=== PATIENT | female | born 1990 | race Caucasian/White ===

== ENCOUNTER 2017-01-23 11:25 | Emergency (ER) | payer SELFPAY ==
[~2017-01-23] VITALS: Ht 172.7 cm; Wt 113.4 kg
[~2017-01-23 11:25] MED LIST: ALPR1TAB2 PO; ASPI1TAB21 PO; FLUO20CA16 PO; HYDR-2758 PO; HYDR-971 PO; IBUPROFEN PO
[2017-01-23 11:34] VITALS: BP 160/106
--- NOTE | 2017-01-23 11:51 | PHYS DOC ---
Past Medical History Past Medical History: Bipolar, Other Additional Past Medical Histor: obesity Past Surgical History: Cholecystectomy, Tonsillectomy Alcohol Use: Occasionally Drug Use: None Adult General Chief Complaint Chief Complaint: ANKLE PROBLEM HPI HPI Patient is a 26 year old female who presents with left ankle pain for 1 week after rolling it while walking down stairs carrying something. Denies other injuries. Continues to have pain laterally and posteriorly. Taking Tylenol with minimal relief, using a velcro wrap, unable to use NSAIDs due to h/o ulcer. She has "a bad sprain" one year ago on same ankle. Didn't complete recommended PT. No PCP Review of Systems Review of Systems Constitutional: Denies fever or chills [] Eyes: Denies change in visual acuity, redness, or eye pain [] HENT: Denies nasal congestion or sore throat [] Respiratory: Denies cough or shortness of breath [] Cardiovascular: denies chest pain GI: Denies abdominal pain, nausea, vomiting, bloody stools or diarrhea [] : Denies dysuria or hematuria [] Musculoskeletal: Denies back pain Integument: Denies rash or skin lesions [] Neurologic: Denies headache, focal weakness or sensory changes [] Allergies Allergies Allergies Coded Allergies Type Severity Reaction Last Updated Verified Penicillins Adverse Reaction Intermediate Nausea 12/10/14 Yes Physical Exam Physical Exam Constitutional: Well developed, well nourished, no acute distress, non-toxic appearance. HENT: Normocephalic, atraumatic Eyes: conjunctiva normal, no discharge. Neck:supple Cardiovascular:Heart rate regular with regular rhythm Lungs & Thorax: No respiratory distress Skin: Warm, dry Extremities: left ankle with ttp of lateral mal and posterior ankle without appreciable edema/erythema or increased warmth. wiggles toes, no pain in the foot, no deformity, normal sensory Neurologic: Alert and oriented X 3, normal sensory function, no focal deficits noted. Psychologic: mood normal. Current Patient Data Vital Signs Vital Signs Date Time Temp Pulse Resp B/P (MAP) Pulse Ox O2 Delivery O2 Flow Rate FiO2 01/23/17 11:34 98.1 115 18 99 Room Air 98.1 EKG EKG [] Radiology/Procedures Radiology/Procedures XRay left ankle 3 view without fracture, dislocation, normal mortis, no foreign body, interpreted by me.[] Course & Med Decision Making Course & Med Decision Making Pertinent Labs and Imaging studies reviewed. (See chart for details) recommend elevation, ongoing tylenol for pain, referred to danielle for follow-up. Kizzy Disclaimer Dragon Disclaimer This electronic medical record was generated, in whole or in part, using a voice recognition dictation system. Departure Departure Impression: Primary Impression: Ankle pain, left Disposition: HOME, SELF-CARE Condition: STABLE Referrals: UNKNOWN PCP NAME (PCP) Additional Instructions: Your ankle did not show a fracture. Please follow--up with a primary care doctor to discuss possible physical therapy. You may see a orthopaedic doctor if needed. Continue Tylenol as needed for pain. REI CONDON MD Jan 23, 2017 11:51
--- NOTE | 2017-01-23 12:03 | RAD ---
Indication injury, pain. AP oblique and lateral views of the left ankle were obtained. Note is made of a similar examination just over a year ago. No acute or significant bony finding is seen.
== END 2017-01-23 12:24 | disposition home or self-care (01) ==
LOC: ER 11:25
DX: M25.572 Pain in left ankle and joints of left foot (principal); F31.9 Bipolar disorder, unspecified; E66.9 Obesity, unspecified; Z68.38 Body mass index [BMI] 38.0-38.9, adult; Z88.0 Allergy status to penicillin; X58.XXXA Exposure to other specified factors, initial encounter; Y93.01 Activity, walking, marching and hiking; Y92.89 Other specified places as the place of occurrence of the external cause; Y99.8 Other external cause status
CPT/HCPCS: 73610; 99284

== ENCOUNTER 2018-06-03 16:38 | Emergency (ER) | payer OTHER ==
[~2018-06-03] VITALS: Ht 172.7 cm; Wt 124.7 kg
[~2018-06-03 16:38] MED LIST changes: -HYDR-2758 PO; +HYDR-2761 PO; +HYDR-3164 PO; -HYDR-971 PO
[2018-06-03 17:05] LABS: BILIRUBIN,URINE NEGATIVE (NEG); CLARITY,URINE CLEAR; COLOR,URINE YELLOW; NITRITE,URINE NEGATIVE (NEG); PROTEIN,URINE NEGATIVE (NEG-TRACE); UROBILINOGEN,URINE 0.2 mg/dL (0.2 mg/dL)
[2018-06-03] MEDS ORDERED: NAPROXEN 500 MG TABLET PO STA (17:07)
[2018-06-03] MEDS ORDERED: HYDROcodone/APAP 5/325MG 1 TAB TABLET PO ONE (17:15)
[2018-06-03 17:17] LABS: BACTERIA,URINE FEW /HPF (0-FEW); RBC,URINE 0 /HPF (0-2); SQUAMOUS EPITHELIAL CELL,UR MOD /LPF; WBC,URINE OCC /HPF (0-4)
[2018-06-03 17:25] LABS: U PREG PATIENT NEGATIVE (NEG)
[2018-06-03 17:30] LABS: BARBITURATES NEG (NEG); BENZODIAZEPINES NEG (NEG); CANNABINOIDS NEG (NEG); COCAINE NEG (NEG); METHADONE NEG (NEG); OPIATES NEG (NEG); PHENCYCLIDINE NEG (NEG)
[2018-06-03 17:31] LABS: AMPHETAMINE/METHAMPHETAMINE NEG (NEG)
--- NOTE | 2018-06-03 18:27 | RAD ---
Indication:LT PELVIC PAIN TECHNIQUE: Grayscale, color Doppler and spectral waveform images of the pelvis obtained. COMPARISON:None FINDINGS: The uterus is anteverted and measures 7.1 x 3.1 x 4.7 cm. Endometrial stripe measures 5 mm in thickness and is within normal limits. IUD seen in appropriate location. Trace amount of free pelvic fluid. Left ovary measures 1.7 x 3.4 x 2.1 cm with a 1.4 x 2.0 x 1.7 cm anechoic lesion with thick wall with less clarity. The left ovary demonstrates evidence of blood flow. The right ovary measures 1.3 x 3.0 x 1.4 cm and shows blood flow. IMPRESSION: 1. Bilateral ovaries demonstrate evidence of blood flow. 2. Minimally complicated cyst likely hemorrhagic cyst in the left ovary. Electronically signed by: Josué Davenport DO (06/03/2018 6:24 PM) [facility]
--- NOTE | 2018-06-03 19:01 | PHYS DOC ---
Past Medical History Past Medical History: Bipolar, Other Additional Past Medical Histor: obesity Past Surgical History: Cholecystectomy, Tonsillectomy Alcohol Use: Rarely Drug Use: None Adult General Chief Complaint Chief Complaint: PELVIC PAIN HPI HPI Patient is a 27 year old female with history of bipolar who presents to the ED today complaining of 10 out of 10 sharp constant left pelvic pain that began last week. Patient states the pain is worse when she is ambulating. Patient denies any nausea vomiting, denies any chance she is . Denies any concerns for STDs. Review of Systems Review of Systems Constitutional: Denies fever or chills [] GI: Reports left pelvic pain, denies nausea, vomiting, bloody stools or diarrhea [] : Denies dysuria or hematuria [] Musculoskeletal: Denies back pain or joint pain [] Integument: Denies rash or skin lesions [] Neurologic: Denies headache, focal weakness or sensory changes [] All other systems were reviewed and found to be within normal limits, except as documented in this note. Current Medications Current Medications Current Medications Medications (Trade) Dose Ordered Sig/Lisa Start Time Stop Time Status Last Admin Dose Admin Acetaminophen/ Hydrocodone Bitart (Lortab 5/325) 2 tab 1X ONCE 06/03/18 17:15 06/03/18 17:16 DC 06/03/18 17:25 2 TAB Naproxen (Naprosyn) 500 mg 1X STAT 06/03/18 17:07 06/03/18 17:17 DC Allergies Allergies Allergies Coded Allergies Type Severity Reaction Last Updated Verified Penicillins Adverse Reaction Intermediate Nausea 12/10/14 Yes Physical Exam Physical Exam Constitutional: Well developed, well nourished, no acute distress, non-toxic appearance. [] Abdomen: Obese abdomen. Bowel sounds normal, soft, no right upper quadrant or right lower quadrant tenderness, no masses, no pulsatile masses. [] Pelvic exam External pelvic appears normal, cervix is visualized, IUD strings are seen in the cervical OS, mild left adnexal tenderness. No right adnexal tenderness. Skin: Warm, dry, no erythema, no rash. [] Back: No tenderness, no CVA tenderness. [] Extremities: No tenderness, no cyanosis, no clubbing, ROM intact, no edema. [] Neurologic: Alert and oriented X 3, normal motor function, normal sensory function, no focal deficits noted. [] Psychologic: Affect normal, judgement normal, mood normal. [] Current Patient Data Vital Signs Vital Signs Date Time Temp Pulse Resp B/P (MAP) Pulse Ox O2 Delivery O2 Flow Rate FiO2 06/03/18 17:30 89 19 148/89 (108) 97 Room Air 06/03/18 16:45 98.6 98.6 Lab Values Laboratory Tests Test 06/03/18 17:00 Urine Collection Type Unknown Urine Color Yellow Urine Clarity Clear Urine pH 6.0 Urine Specific [place] 1.015 Urine Protein Negative mg/dL (NEG-TRACE) Urine Glucose (UA) Negative mg/dL (NEG) Urine Ketones (Stick) Negative mg/dL (NEG) Urine Blood Negative (NEG) Urine Nitrite Negative (NEG) Urine Bilirubin Negative (NEG) Urine Urobilinogen Dipstick 0.2 mg/dL (0.2 mg/dL) Urine Leukocyte Esterase Small (NEG) Urine RBC 0 /HPF (0-2) Urine WBC Occ /HPF (0-4) Urine Squamous Epithelial Cells Mod /LPF Urine Bacteria Few /HPF (0-FEW) Urine Test Negative (NEG) Urine Opiates Screen Neg (NEG) Urine Methadone Screen Neg (NEG) Urine Barbiturates Neg (NEG) Urine Phencyclidine Screen Neg (NEG) Urine Amphetamine/Methamphetamine Neg (NEG) Urine Benzodiazepines Screen Neg (NEG) Urine Cocaine Screen Neg (NEG) Urine Cannabinoids Screen Neg (NEG) Urine Ethyl Alcohol Neg (NEG) Microbiology 06/03/18 Wet Prep - Final, Complete EKG EKG [] Radiology/Procedures Radiology/Procedures PROCEDURE: PELVIS W/TV Indication:LT PELVIC PAIN TECHNIQUE: Grayscale, color Doppler and spectral waveform images of the pelvis obtained. COMPARISON:None FINDINGS: The uterus is anteverted and measures 7.1 x 3.1 x 4.7 cm. Endometrial stripe measures 5 mm in thickness and is within normal limits. IUD seen in appropriate location. Trace amount of free pelvic fluid. Left ovary measures 1.7 x 3.4 x 2.1 cm with a 1.4 x 2.0 x 1.7 cm anechoic lesion with thick wall with less clarity. The left ovary demonstrates evidence of blood flow. The right ovary measures 1.3 x 3.0 x 1.4 cm and shows blood flow. IMPRESSION: 1. Bilateral ovaries demonstrate evidence of blood flow. 2. Minimally complicated cyst likely hemorrhagic cyst in the left ovary. Electronically signed by: Josué Jaramillo DO (06/03/2018 6:24 PM) [facility] DICTATED and SIGNED BY: JOSUÉ JARAMILLO DO DATE: 06/03/181816 Course & Med Decision Making Course & Med Decision Making Pertinent Labs and Imaging studies reviewed. (See chart for details) This is a 27-year-old female patient presenting to the ED today complaining of left pelvic pain, negative urine hCG, urine analysis appears contaminated, wet prep negative for infection. Pelvic ultrasound noted for minimally complicated cyst likely hemorrhagic cyst in the left ovary. Patient was discharged to home, instructed to follow-up with her [facility]. Talked about pain management. Provided return precautions. Dragon Disclaimer Dragon Disclaimer This electronic medical record was generated, in whole or in part, using a voice recognition dictation system. Departure Departure Impression: Primary Impression: Hemorrhagic cyst of left ovary Disposition: HOME, SELF-CARE Condition: STABLE Referrals: UNKNOWN PCP NAME (PCP) SABRINA LAWLER MD follow up in 6 weeks Patient Instructions: Ovarian Cyst, [id number] Additional Instructions: You were evaluated in the emergency room for pelvic pain and noted to have a hemorrhagic cyst to the left ovary. Please take the prescribed medications as ordered and as we discussed. Apply heat to your left pelvic region. Follow-up with your [facility] in the next 6 weeks for repeat ultrasound. Scripts Hydrocodone/Apap 5-325 (NORCO 5-325 TABLET) 1 Each Tablet 1 TAB PO Q6HRS, #12 TAB Prov: DEENA WARNER APRN 06/03/18 DEENA WARNER APRN Jun 03, 2018 19:01
[2018-06-03] MEDS ORDERED: HYDR-3164 PO (19:07)
[2018-06-03 19:15] VITALS: BP 141/71
[2018-06-04 13:18] LABS: GC PROBE Negative (Negative)
== END 2018-06-03 19:15 | disposition home or self-care (01) ==
LOC: ER 16:38
DX: N83.202 Unspecified ovarian cyst, left side (principal); F31.9 Bipolar disorder, unspecified; E66.9 Obesity, unspecified; Z68.41 Body mass index [BMI] 40.0-44.9, adult; Z90.49 Acquired absence of other specified parts of digestive tract; Z90.89 Acquired absence of other organs; Z88.0 Allergy status to penicillin
CPT/HCPCS: 76830; 76856; 80307; 81001; 81025; 87086; 87491; 87591; 99284; Q0111

== ENCOUNTER 2020-05-18 21:50 | Emergency (ER) | payer SELFPAY ==
[~2020-05-18] VITALS: Ht 170.2 cm; Wt 159.1 kg
[2020-05-18 22:24] LABS: BILIRUBIN,URINE NEGATIVE (NEG); CLARITY,URINE CLEAR; COLOR,URINE YELLOW; NITRITE,URINE NEGATIVE (NEG); PROTEIN,URINE NEGATIVE (NEG-TRACE)
[2020-05-18 22:31] LABS: AMORPHOUS SEDIMENT,UR PRESENT /HPF; BACTERIA,URINE MOD /HPF (0-FEW); RBC,URINE 0 /HPF (0-2)
[2020-05-19] MEDS ORDERED: oxyCODONE/APAP 5/325 1 TAB TABLET PO ONE
--- NOTE | 2020-05-19 00:08 | RAD ---
US TRANSVAGINAL: 05/18/2020 11:09 PM INDICATION: 29 years old Female. Severe pelvic pain . COMPARISON: None. TECHNIQUE: Transabdominal and transvaginal sonographic evaluation of the pelvis was performed. Shauna arvind, color Doppler and spectral waveform analysis were utilized. FINDINGS: UTERUS: Size: 5.9 x 3.1 x 2.0 cm. Masses: None. Endometrium: 5.7 mm. No suspicious vascularity is identified. RIGHT OVARY: 3.0 x 2.0 x 1.7 cm. Ovary is normal in appearance. LEFT OVARY: 3.1 x 1.7 x 1.5 cm. Ovary is normal in appearance. Arterial and venous waveform are identified within the ovaries bilaterally at the time of imaging. FREE FLUID: There is a trace amount of free fluid within the pelvis, physiologic in amount. URINARY BLADDER: Unremarkable. IMPRESSION: Perfusion is noted to the ovaries bilaterally at the time of imaging. Trace pelvic free fluid may be physiologic. Electronically signed by: Milena Cavanaugh MD (05/19/2020 12:06 AM) [facility]
--- NOTE | 2020-05-19 00:09 | ED.ADGEN ---
Past Medical History Past Medical History: Anxiety, Bipolar, Depression, Ovarian Cyst, Other Additional Past Medical Histor: obesity and agorphobia Past Surgical History: Cholecystectomy, Tonsillectomy Smoking Status: Current Every Day Smoker Additional Information: /2 PPD Alcohol Use: Rarely Drug Use: None General Adult EDM: Chief Complaint: ABDOMINAL PAIN HPI: HPI: Patient is a 29 year old female who presents to the Emergency Room complaining of L pelvic pain for the last couple of weeks. Patient states she has a history of ovarian cysts and states this feels similar. Two weeks ago she states it felt like she had a ruptured cyst which is pain she has had been before. She states the pain has since come back and become unbearable. She states she has no concerns for STDs and does not want to be checked for this. She denies any vaginal bleeding, vaginal discharge, urinary symptoms, nausea, vomiting, fever, chills, sweats. Review of Systems: Review of Systems: Complete ROS is negative unless otherwise documented in HPI Current Medications: Current Medications Medications (Trade) Dose Ordered Sig/Lisa Start Time Stop Time Status Last Admin Dose Admin Oxycodone/ Acetaminophen (Percocet 5/325) 1 tab 1X ONCE 05/19/20 00:00 05/19/20 00:01 DC 05/18/20 23:48 1 TAB Allergies: Allergies: Allergies Coded Allergies Type Severity Reaction Last Updated Verified Penicillins Adverse Reaction Intermediate Nausea 12/10/14 Yes Physical Exam: PE: General: Awake, alert, NAD. Well Nourished, well hydrated. Cooperative HEENT: Atraumatic, EOMI, PERRL, airway patent, moist oral mucosa Neck: Supple, trachea midline Respiratory: CTA bilaterally, normal effort, no wheezing/crackles CV: RRR, no murmur, cap refill <2 GI: Soft, nondistended, nontender, no masses MSK: No obvious deformities Skin: Warm, dry, intact Neuro: A&O x3, speech NL, sensory and motor grossly intact, no focal deficits Psych: Normal affect, normal mood, not suicidal or homicidal Current Patient Data: Labs: Laboratory Tests Test 05/18/20 22:10 05/18/20 22:15 Urine Collection Type Unknown Urine Color Yellow Urine Clarity Clear Urine pH 6.0 (<5.0-8.0) Urine Specific [place] 1.025 (1.000-1.030) Urine Protein Negative mg/dL (NEG-TRACE) Urine Glucose (UA) Negative mg/dL (NEG) Urine Ketones (Stick) Negative mg/dL (NEG) Urine Blood Negative (NEG) Urine Nitrite Negative (NEG) Urine Bilirubin Negative (NEG) Urine Urobilinogen Dipstick 1.0 mg/dL (0.2 mg/dL) Urine Leukocyte Esterase Trace (NEG) Urine RBC 0 /HPF (0-2) Urine WBC 1-4 /HPF (0-4) Urine Squamous Epithelial Cells Many /LPF Urine Amorphous Sediment Present /HPF Urine Bacteria Mod /HPF (0-FEW) Urine Mucus Marked /LPF POC Urine HCG, Qualitative Hcg negative (Negative) Vital Signs: Vital Signs Date Time Temp Pulse Resp B/P (MAP) Pulse Ox O2 Delivery O2 Flow Rate FiO2 05/18/20 23:48 18 99 05/18/20 23:45 107 144/81 (102) Room Air 05/18/20 22:10 98.7 98.7 EKG: EKG: [] Heart Score: Risk Factors: Risk Factors: DM, Current or recent (<one month) smoker, HTN, HLP, family history of CAD, obesity. Risk Scores: Score 0 - 3: 2.5% MACE over next 6 weeks - Discharge Home Score 4 - 6: 20.3% MACE over next 6 weeks - Admit for Clinical Observation Score 7 - 10: 72.7% MACE over next 6 weeks - Early Invasive Strategies Radiology/Procedures: Radiology/Procedures: [] Course & Med Decision Making: Course & Med Decision Making Pertinent Labs and Imaging studies reviewed. (See chart for details) Patient is a 29 year old female who presents with left sided pelvic pain. This may be due to an ovarian cyst. Given the intensity of pain will do pelvic US to rule out torsion. UA was sent and is negative for UTI. Patient does not want tested/treated for STDs. Ultrasound is unremarkable. Patient does not have any right-sided pain suggestive of appendicitis. At this time patient will be discharged home and will follow up with [facility]. Patient's test results and vitals while in the ED were fully reviewed and discussed with the patient. Patient is stable and at this time does not need admission to the hospital. We have discussed strict return precautions and the importance of following up with their Primary Care Physician. Patient stated understanding and was given an opportunity to ask any questions. Patient is in agreement with plan. Dragon Disclaimer: Dragon Disclaimer: This electronic medical record was generated, in whole or in part, using a voice recognition dictation system. Departure Departure Impression: Primary Impression: Abdominal pain Disposition: 01 DC HOME SELF CARE/HOMELESS Condition: STABLE Referrals: NO PCP (PCP) Patient Instructions: Ovarian Cyst Scripts Tramadol Hcl (TRAMADOL HCL) 50 Mg Tablet 50 MG PO Q6HRS PRN for PAIN, #6 TAB Prov: STELLA ROSARIO MD 05/19/20 STELLA ROSARIO MD May 19, 2020 00:09
[2020-05-19 00:46] VITALS: BP 157/80
[2020-05-19] MEDS ORDERED: TRAM50TA PO (00:57)
== END 2020-05-19 01:11 | disposition home or self-care (01) ==
LOC: ER 21:50
DX: R10.9 Unspecified abdominal pain (principal); R11.0 Nausea; F31.9 Bipolar disorder, unspecified; F41.9 Anxiety disorder, unspecified; F17.200 Nicotine dependence, unspecified, uncomplicated; Z88.0 Allergy status to penicillin
CPT/HCPCS: 76830; 81001; 81025; 99285-25

== ENCOUNTER 2020-08-27 18:28 | Emergency (ER) | payer SELFPAY ==
[~2020-08-27] VITALS: Ht 170.2 cm; Wt 147.7 kg
[~2020-08-27 18:28] MED LIST changes: +TRAM50TA PO
[2020-08-27] MEDS ORDERED: IV NORMAL SALINE 1000ML BAG 1,000 ML IV SCH (20:00)
[2020-08-27] MEDS ORDERED: PANTOPRAZOLE IV PUSH 40 MG VIAL. IVP ONE (20:15)
[2020-08-27] MEDS ORDERED: ONDANSETRON PF 4 MG/2 ML VIAL. IVP ONE (20:15)
[2020-08-27] MEDS ORDERED: fentaNYL PF VIAL 100 MCG/2 ML VIAL IVP ONE (20:15)
--- NOTE | 2020-08-27 20:19 | PHYS DOC ---
Past Medical History Past Medical History: Anxiety, Bipolar, Depression, Ovarian Cyst, P.U.D., Other Additional Past Medical Histor: obesity/agorphobia Past Surgical History: Cholecystectomy, Tonsillectomy Smoking Status: Current Every Day Smoker Additional Information: 0.75 PPD Alcohol Use: Rarely Drug Use: None General Adult EDM: Chief Complaint: MULTIPLE COMPLAINTS HPI: HPI: Patient is a 29 year old female who presents with went to the dentist and they placed her on clindamycin during her upper dental abscess. She states she is scheduled for root canal on Saturday. She is also here due to abdominal pain with chills and nausea and is worried that her gastric ulcers have come back. Patient rates her abdominal pain a cramping 7 out of 10. States her stoo ls have been softer and her last with this morning. She states that she has not vomited, denies fever, diarrhea, constipation, headache, dizziness, chest pain, shortness of air, urinary symptoms, back pain. She has a history of anxiety, bipolar, depression, agoraphobia, ovarian cyst, PUD, cholecystectomy, smoking, tonsillectomy. Review of Systems: Review of Systems: Constitutional: + fever or chills. [] Eyes: Denies change in visual acuity. [] HENT: Denies nasal congestion or sore throat. + Continue dental pain [] Respiratory: Denies cough or shortness of breath. [] Cardiovascular: Denies chest pain or edema. [] GI: + Epigastric abdominal pain, +nausea, + burping, denies vomiting, bloody stools or diarrhea. [] : Denies dysuria. [] Musculoskeletal: Denies back pain or joint pain. [] Integument: Denies rash. [] Neurologic: Denies headache, focal weakness or sensory changes. [] Endocrine: Denies polyuria or polydipsia. [] Lymphatic: Denies swollen glands. [] Psychiatric: Denies depression or anxiety. [] Heart Score: C/O Chest Pain: No Risk Factors: Risk Factors: DM, Current or recent (<one month) smoker, HTN, HLP, family history of CAD, obesity. Risk Scores: Score 0 - 3: 2.5% MACE over next 6 weeks - Discharge Home Score 4 - 6: 20.3% MACE over next 6 weeks - Admit for Clinical Observation Score 7 - 10: 72.7% MACE over next 6 weeks - Early Invasive Strategies Current Medications: Current Medications Medications (Trade) Dose Ordered Sig/Lisa Start Time Stop Time Status Last Admin Dose Admin Fentanyl Citrate (Fentanyl 2ml Vial) 50 mcg 1X ONCE 08/27/20 20:15 08/27/20 20:16 UNV Ondansetron HCl (Zofran) 4 mg 1X ONCE 08/27/20 20:15 08/27/20 20:16 UNV Pantoprazole Sodium (PROTONIX VIAL for IV PUSH) 40 mg 1X ONCE 08/27/20 20:15 08/27/20 20:16 UNV Sodium Chloride 1,000 ml @ 1,000 mls/hr Q1H 08/27/20 20:00 08/27/20 20:59 Allergies: Allergies: Allergies Coded Allergies Type Severity Reaction Last Updated Verified Penicillins Adverse Reaction Intermediate Nausea 12/10/14 Yes Physical Exam: PE: Constitutional: Well developed, well nourished, no acute distress, non-toxic appearance. [] HENT: Normocephalic, atraumatic, bilateral external ears normal, oropharynx moist, no oral exudates, nose normal. [] Eyes: PERRLA, EOMI, conjunctiva normal, no discharge. [] Neck: Normal range of motion, no tenderness, supple, no stridor. [] Cardiovascular:Heart rate regular rhythm, no murmur [] Lungs & Thorax: Bilateral breath sounds clear to auscultation [] Abdomen: Bowel sounds normal, soft, epigastric tenderness, no masses, no pulsatile masses. [] Skin: Warm, dry, no erythema, no rash. [] Back: No tenderness, no CVA tenderness. [] Extremities: No tenderness, no cyanosis, no clubbing, ROM intact, no edema. [] Neurologic: Alert and oriented X 3, normal motor function, normal sensory function, no focal deficits noted. [] Psychologic: Affect normal, judgement normal, mood normal. [] Current Patient Data: Vital Signs: Vital Signs Date Time Temp Pulse Resp B/P (MAP) Pulse Ox O2 Delivery O2 Flow Rate FiO2 08/27/20 19:53 98.7 97 20 160/99 (119) 100 Room Air 98.7 EKG: EKG: [] Radiology/Procedures: Radiology/Procedures: [] Impression: [facility] [address] [place] [address] IMAGING REPORT Signed PATIENT: ANTON BROOKS ACCOUNT: [id number] : 1990 LOCATION: ER AGE: 29 SEX: F EXAM STATUS: REG ER ORD. PHYSICIAN: DEEPAK REARDON APRN REASON: abd pain, vomiting, OMNI 300, 75 ML IV PROCEDURE: CT ABD PELV W/ IV CONTRST ONLY Exam: CT of abdomen and pelvis with contrast INDICATION: Abdominal pain, vomiting TECHNIQUE: Sequential axial images through the abdomen and pelvis obtained following the administration of 75 mL of Isovue-370 IV contrast. Sagittal and coronal reformatted images were reconstructed from the axial data and reviewed. Exposure: One or more of the following in the visualized dose reduction techniques were utilized for this examination: 1. Automated exposure control 2. Adjustment of the MA and/or KV according to patient size 3. Use of iterative of reconstructive technique Comparisons: None FINDINGS: Heart size is normal. No pericardial effusion. Visualized lung bases are clear. No pleural effusion. Liver, spleen, pancreas, and adrenals are unremarkable. Gallbladder surgically absent. No perinephric inflammation or hydronephrosis. No renal or ureteral calculi are identified. Bladder is partially distended and appears thin-walled. Uterus is nonenlarged. No abnormal adnexal mass. Large and small bowel are unremarkable. Appendix is normal. No free intra- abdominal air or fluid. No obstruction. Abdominal aorta has a normal course and caliber. Abdominal vasculature is patent. No enlarged intra-abdominal lymph nodes are identified. No suspicious osseous lesions or acute fractures. IMPRESSION: No acute process identified within the abdomen or pelvis. Electronically signed by: Reyes Hernandez MD (08/27/2020 10:24 PM) [facility] DICTATED and SIGNED BY: REYES HERNANDEZ MD DATE: 08/27/[id number] 0 Course & Med Decision Making: Course & Med Decision Making Pertinent Labs and Imaging studies reviewed. (See chart for details) See HPI. Alert and oriented x4. Ambulatory with a steady gait. Speaks in full complete sentences. No facial swelling and no fever. No abscesses felt. Abdomen is soft but tender to epigastric area. Skin pink warm and dry. Blood work unremarkable. CT abdomen pelvis shows no acute findings. Vital signs are within normal limits. Patient is stable. She has been able to keep down fluids. [] Kizzy Disclaimer: Kizzy Disclaimer: This electronic medical record was generated, in whole or in part, using a voice recognition dictation system. Departure Departure Impression: Primary Impression: Abdominal pain Qualified Codes: R10.13 - Epigastric pain Additional Impression: Pain, dental Disposition: HOME / SELF CARE / HOMELESS Condition: STABLE Referrals: NO PCP (PCP) Patient Instructions: Abdominal Pain (Nonspecific), Dental Pain Additional Instructions: Follow-up with your dentist as planned. Continue taking your antibiotic. Take it with food. Drink plenty of fluids. Take Tylenol for your pain. Scripts Ondansetron (ONDANSETRON ODT) 4 Mg Tab.rapdis 1 TAB PO PRN Q6-8HRS, #16 TAB Prov: DEEPAK REARDON FLASH [employer]ELOPER 08/27/20 Famotidine (PEPCID) 20 Mg Tablet 20 MG PO BID, #30 TAB Prov: DEEPAK REARDON FL[employer] DEVELOPER 08/27/20 DEEPAK REARDON FL[employer] DEVELOPER August 27, 2020 20:19
[2020-08-27 20:36] LABS: BILIRUBIN,URINE NEGATIVE (NEG); CLARITY,URINE CLOUDY; COLOR,URINE YELLOW; NITRITE,URINE NEGATIVE (NEG); PH,URINE 7.5 (<5.0-8.0); PROTEIN,URINE NEGATIVE (NEG-TRACE); UROBILINOGEN,URINE 0.2 mg/dL (0.2 mg/dL)
[2020-08-27 20:44] LABS: AMORPHOUS SEDIMENT,UR PRESENT /HPF
[2020-08-27 20:45] LABS: BACTERIA,URINE MANY /HPF (0-FEW); RBC,URINE RARE /HPF (0-2)
[2020-08-27 20:47] LABS: WBC,URINE OCC /HPF (0-4)
[2020-08-27 20:50] LABS: BASO % 0 % (0-3); EOS # 0.1 x10^3/uL (0.0-0.7); EOS % 1 % (0-3); HEMATOCRIT 39.5 % (36.0-47.0); HEMOGLOBIN 14.2 g/dL (12.0-15.5); LYMPH # 0.9 x10^3/uL (1.0-4.8); LYMPH % 13 % (24-48); MEAN CORPUSCULAR HEMOGLOBIN 32 pg (25-35); MEAN CORPUSCULAR HGB CONC 36 g/dL (31-37); MEAN CORPUSCULAR VOLUME 89 fL (79-100); MONO # 0.5 x10^3/uL (0.0-1.1); MONO % 7 % (0-9); NEUT # 5.8 x10^3/uL (1.8-7.7); NEUT % 79 % (31-73); PLATELET COUNT 222 x10^3/uL (140-400); RED BLOOD COUNT 4.41 x10^6/uL (3.50-5.40); RED CELL DISTRIBUTION WIDTH 12.9 % (11.5-14.5); WHITE BLOOD COUNT 7.3 x10^3/uL (4.0-11.0)
[2020-08-27 21:01] LABS: CALCIUM 9.2 mg/dL (8.5-10.1); CREATININE 0.9 mg/dL (0.6-1.0); GFR 73.5; POTASSIUM 3.8 mmol/L (3.5-5.1)
[2020-08-27 21:07] LABS: ALBUMIN 3.6 g/dL (3.4-5.0); ALBUMIN/GLOBULIN RATIO 0.9 (1.0-1.7); TOTAL BILIRUBIN 0.4 mg/dL (0.2-1.0); TOTAL PROTEIN 7.6 g/dL (6.4-8.2)
[2020-08-27] MEDS ORDERED: CONTRAST GIVEN. MC PRN (21:45)
[2020-08-27] MEDS ORDERED: IOHEXOL 300 MG/ML 100ML VIAL. IV ONE (22:00)
--- NOTE | 2020-08-27 22:26 | RAD ---
Exam: CT of abdomen and pelvis with contrast INDICATION: Abdominal pain, vomiting TECHNIQUE: Sequential axial images through the abdomen and pelvis obtained following the administrati on of 75 mL of Isovue-370 IV contrast. Sagittal and coronal reformatted images were reconstructed fro m the axial data and reviewed. Exposure: One or more of the following in the visualized dose reduction techniques were utilized for this examination: 1. Automated exposure control 2. Adjustment of the MA and/or KV according to patient size 3. Use of iterative of reconstructive technique Comparisons: None FINDINGS: Heart size is normal. No pericardial effusion. Visualized lung bases are clear. No pleural effusion. Liver, spleen, pancreas, and adrenals are unremarkable. Gallbladder surgically absent. No perinephric inflammation or hydronephrosis. No renal or ureteral calculi are identified. Bladder is partially distended and appears thin-walled. Uterus is nonenlarged. No abnormal adnexal ma ss. Large and small bowel are unremarkable. Appendix is normal. No free intra-abdominal air or fluid. No obstruction. Abdominal aorta has a normal course and caliber. Abdominal vasculature is patent. No enlarged intra-abdominal lymph nodes are identified. No suspicious osseous lesions or acute fractures. IMPRESSION: No acute process identified within the abdomen or pelvis. Electronically signed by: Reyes Nolan MD (08/27/2020 10:24 PM) MIS[facility]
[2020-08-27] MEDS ORDERED: ONDA4TAB12 PO (22:35)
[2020-08-27] MEDS ORDERED: FAMO-63 PO (22:35)
[2020-08-27 22:45] VITALS: BP 162/84
== END 2020-08-27 22:57 | disposition home or self-care (01) ==
LOC: ER 18:28
DX: R10.13 Epigastric pain (principal); K08.89 Other specified disorders of teeth and supporting structures; R11.0 Nausea; F31.9 Bipolar disorder, unspecified; F17.200 Nicotine dependence, unspecified, uncomplicated; Z90.49 Acquired absence of other specified parts of digestive tract; Z88.0 Allergy status to penicillin
CPT/HCPCS: 36415; 74177; 80053; 81001; 81025; 83690; 85025; 87086; 96361; 96374; 96375; 99285; C9113; J2405; J3010; J7030; Q9967